=== PATIENT | male | born 1970 | race American Indian/Alaskan Native ===

== ENCOUNTER 2020-06-14 07:16 | Day surgery (SDC) | payer OTHER ==
[~2020-06-14 07:16] MED LIST: Lactated Ringers 1,000 ML IV SCH
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
[2020-06-14] MEDS ORDERED: Propofol 200 MG/20 ML SDV ONE ×3 (08:21→08:48)
--- NOTE | 2020-06-14 09:29 | PCM.OPNOTE ---
- General Post-Op/Procedure Note Date of Surgery/Procedure: 06/14/20 Operative Procedure(s): egd w bx. colonoscopy Findings: see [id number] Pre Op Diagnosis: Guaiac +ve stool Post-Op Diagnosis: Same Anesthesia Technique: Moderate Sedation Primary Surgeon: Jase Ch Pathology: egd bx Complications: None Condition: Good Free Text/Narrative:: Intake & Output 06/13/20 06/14/20 06/14/20 22:59 06:59 14:59 Intake Total 450 Balance 450
--- NOTE | 2020-06-14 10:58 | OR ---
SURGEON: Jase Ch MD DATE OF PROCEDURE: 06/14/2020 PREOPERATIVE DIAGNOSIS: Positive guaiac stool. POSTOPERATIVE DIAGNOSIS: Anal fissure. PROCEDURES PERFORMED: Esophagogastroduodenoscopy with biopsy and colonoscopy. DESCRIPTION OF PROCEDURE: EGD: The patient was taken to the endoscopy room, and with the DIRECTOR OF PROGRAMMING, Diprivan was administered. A well-lubricated EGD scope was gently inserted through the oropharynx, down the esophagus, passing through the gastroesophageal junction, into the stomach. The mucosa was examined upon the passage. Any etiology will be noted. Once in the stomach, we continued to advance to the distal antrum, passed through the pylorus into the second portion of the duodenum. Again, the mucosa was examined for any abnormality and etiology. The scope was then retrieved back to the stomach and then retroflexed to look at the fundus of the stomach. If a biopsy was indicated, we will biopsy the antrum, body, and gastroesophageal junction. The air will be sucked out while the scope is retrieved to reduce the patient's discomfort. The patient tolerated the procedure well. There were no intraoperative complications. Dr. Ch was present through the whole procedure. Prior to surgery, a time-out had been called, the patient identified, procedure identified and antibiotic administered. The patient was taken to the endoscopy room. A time out was called, patient identified, and procedure identified. Diprivan was then administrated. Patient went from awake to sleep, hearing doctor talking or door closing is normal. Perineum inspection and digital examination were then performed. A well- lubricated colonoscope was gently inserted through the rectum, advanced past the rectosigmoid junction, the descending colon, splenic flexure, transverse colon, hepatic flexure, ascending colon, arrived to the cecum. Cecum was identified as dictated in the finding. Then the scope was carefully withdrawn while attention was paid to the mucosal surface for any abnormality. Air will be sucked out during the scope withdrawal. At the rectum, retroflexed to examine any rectal diseases, fistula or hemorrhoids. Patient tolerated procedure well. There were no intraoperative complications, and Dr. Ch was present throughout the whole procedure. FINDINGS: EGD findings: 1. The patient is easily sedated with DIRECTOR OF PROGRAMMING and Diprivan, the patient is soundly snoring. 2. Oropharynx and proximal esophagus are free of disease, inflammation, stricture, or varicosity. Distal esophagus at GE junction at 40 shows very minimal salmon-colored change, suggests very mild acid reflux. Stomach rugae are normal in appearance. Antrum looks a little bit inflamed. Duodenum looks grossly normal. Retroflexed look at the fundus of stomach, there is no hiatal hernia. Biopsy done at antrum and body and GE junction at 40 and sucked out the gas while scope pulling out. During the whole study, there is no food particle or bile or blood observed. Colonoscopy findings: 1. The patient is easily sedated with DIRECTOR OF PROGRAMMING and Diprivan, the patient is soundly snoring. 2. Bowel prep is average to good. No semi-formed stool, no stool ball. 3. Colon is rather straightforward. Cecum indicated by ileocecal fold, one-to- one indentation, appendiceal orifice. Light emittance is not observed. Mucosa examined upon scope pulling out with a little bit with irrigation. The patient does not have diverticulosis, polyp, mass, growth, inflammation, stricture, ulceration, AV malformation, bleeding, none of those. Stool is yellow and brown. The patient has mild external hemorrhoid, almost none, and no internal hemorrhoid. At 6 o'clock, if the patient is prone, toward the penis direction, there is a thickened scar, suggests a healed fissure in the past and that may explain his positive guaiac stool. The patient also remarked that sometimes when he wipes he sees blood. Anyway, it is healed, but it is very thickened, hypertrophied consistent with a healed fissure. The patient would benefit from repeat colonoscopy in 10 years from today or if clinically indicated otherwise. TRAY / DIANE /[id number]
--- NOTE | 2020-06-14 11:14 | PCM48HPAN ---
Post Anesthesia Note - EVALUATION WITHIN 48HRS OF ANESTHETIC Vital Signs in Normal Range: Yes Patient Participated in Evaluation: Yes Respiratory Function Stable: Yes Airway Patent: Yes Cardiovascular Function Stable: Yes Hydration Status Stable: Yes Pain Control Satisfactory: Yes Nausea and Vomiting Control Satisfactory: Yes Mental Status Recovered: Yes Vital Signs: Last Vital Signs Temp 36.4 C 06/14/20 09:18 Pulse 68 06/14/20 09:18 Resp 14 06/14/20 09:18 BP 114/74 06/14/20 09:18 Pulse Ox 95 06/14/20 09:18 - COMMENTS/OBSERVATIONS Free Text/Narrative:: No anesthesia problems
--- NOTE | 2020-06-14 11:14 | PCM.POSTAN ---
POST ANESTHESIA ASSESSMENT - MENTAL STATUS Mental Status: Alert, Oriented - VITAL SIGNS Vital Signs: Last Vital Signs Temp 36.4 C 06/14/20 09:18 Pulse 68 06/14/20 09:18 Resp 14 06/14/20 09:18 BP 114/74 06/14/20 09:18 Pulse Ox 95 06/14/20 09:18 - RESPIRATORY Respiratory Status: Respiratory Rate WNL, Airway Patent, O2 Saturation Stable - CARDIOVASCULAR CV Status: Pulse Rate WNL, Blood Pressure Stable - GASTROINTESTINAL GI Status: No Symptoms - PAIN Pain Score: 0 - POST OP HYDRATION Hydration Status: Adequate & Stable - OBSERVATIONS Free Text/Narrative:: No anesthesia problems
== END 2020-06-14 09:36 | disposition home or self-care (01) ==
LOC: MW.SDS 07:16
PROVIDERS: ATTEND Surgery
DX: R19.4 Change in bowel habit (principal); K29.00 Acute gastritis without bleeding; K29.50 Unspecified chronic gastritis without bleeding; K21.00 Gastro-esophageal reflux disease with esophagitis, without bleeding; K64.4 Residual hemorrhoidal skin tags; I10 Essential (primary) hypertension; G47.30 Sleep apnea, unspecified; E66.9 Obesity, unspecified; Z79.899 Other long term (current) drug therapy; Z98.890 Other specified postprocedural states; Z68.35 Body mass index [BMI] 35.0-35.9, adult
CPT/HCPCS: 43239; 45378; 88305; 88312; J2704; J7120

== ENCOUNTER 2020-11-01 08:09 | Day surgery (SDC) | payer OTHER ==
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
[~2020-11-01 08:09] MED LIST changes: +Lidocaine 2% 5 ML SDV ONE; +Ondansetron 4 MG/2 ML SDV IVPUSH PRN; +Ondansetron 4 MG/2 ML SDV ONE; +Propofol 200 MG/20 ML SDV ONE; +fentaNYL 100 MCG/2 ML SDV ONE
[2020-11-01] MEDS ORDERED: Metoclopramide 10 MG/2 ML SDV ONE ×2 (08:36→08:37)
--- NOTE | 2020-11-01 09:32 | PCM.OPNOTE ---
- General Post-Op/Procedure Note Date of Surgery/Procedure: 11/01/20 Operative Procedure(s): egd w bx Findings: see [id number] Pre Op Diagnosis: hpylori infection hx Post-Op Diagnosis: Same Anesthesia Technique: Moderate Sedation Primary Surgeon: Jase Ch Pathology: egd bx and whitish curdish stuff, check for h pylori and yeast Complications: None Condition: Good
--- NOTE | 2020-11-01 09:41 | PCM.POSTAN ---
POST ANESTHESIA ASSESSMENT - MENTAL STATUS Mental Status: Alert, Oriented - VITAL SIGNS Vital Signs: Last Vital Signs Temp 96.6 F L 11/01/20 08:20 Pulse 80 11/01/20 09:38 Resp 15 11/01/20 09:38 BP 142/86 H 11/01/20 09:38 Pulse Ox 97 11/01/20 09:38 - RESPIRATORY Respiratory Status: Respiratory Rate WNL, Airway Patent, O2 Saturation Stable - CARDIOVASCULAR CV Status: Pulse Rate WNL, Blood Pressure Stable - GASTROINTESTINAL GI Status: No Symptoms - POST OP HYDRATION Hydration Status: Adequate & Stable
--- NOTE | 2020-11-01 09:42 | PCM48HPAN ---
Post Anesthesia Note - EVALUATION WITHIN 48HRS OF ANESTHETIC Vital Signs in Normal Range: Yes Patient Participated in Evaluation: Yes Respiratory Function Stable: Yes Airway Patent: Yes Cardiovascular Function Stable: Yes Hydration Status Stable: Yes Pain Control Satisfactory: Yes Nausea and Vomiting Control Satisfactory: Yes Mental Status Recovered: Yes Vital Signs: Last Vital Signs Temp 96.6 F L 11/01/20 08:20 Pulse 80 11/01/20 09:38 Resp 15 11/01/20 09:38 BP 142/86 H 11/01/20 09:38 Pulse Ox 97 11/01/20 09:38
--- NOTE | 2020-11-01 14:46 | OR ---
SURGEON: Jase Ch MD DATE OF PROCEDURE: 11/01/2020 PRIMARY SURGEON: Jase Ch MD PREOPERATIVE DIAGNOSIS: History of Helicobacter pylori infection. POSTOPERATIVE DIAGNOSIS: History of Helicobacter pylori infection. PROCEDURE PERFORMED: Esophagogastroduodenoscopy with biopsy. DESCRIPTION OF PROCEDURE: EGD: The patient was taken to the endoscopy room, and with the REFUSE COLLECTOR SUPERVISOR, Diprivan was administered. A well-lubricated EGD scope was gently inserted through the oropharynx, down the esophagus, passing through the gastroesophageal junction, into the stomach. The mucosa was examined upon the passage. Any etiology will be noted. Once in the stomach, we continued to advance to the distal antrum, passed through the pylorus into the second portion of the duodenum. Again, the mucosa was examined for any abnormality and etiology. The scope was then retrieved back to the stomach and then retroflexed to look at the fundus of the stomach. If a biopsy was indicated, we will biopsy the antrum, body, and gastroesophageal junction. The air will be sucked out while the scope is retrieved to reduce the patient's discomfort. The patient tolerated the procedure well. There were no intraoperative complications. Dr. Ch was present through the whole procedure. Prior to surgery, a time-out had been called, the patient identified, procedure identified and antibiotic administered. FINDINGS: 1. The patient is easily sedated with REFUSE COLLECTOR SUPERVISOR and Diprivan. The patient is soundly snoring. 2. Oropharynx and very proximal esophagus are free of disease, inflammation, stricture, or varicosity, but starting from the mid esophagus, there is quite a lot of white curdish stuff sticking onto the mucosa, sounds like it is a yeast infection, could be healed ulcer. We biopsied at 30 cm. There is no stricture, no clear inflammation. At distal esophagus at 40, there is some salmon-colored change, suggests acid reflux. No esophagitis. Stomach rugae are normal in appearance and antrum has some coffee-ground stuff. No briana inflammation, but there is some coffee-ground stuff. Duodenum was grossly normal. On retroflexed look at the fundus of stomach, there is no hiatal hernia. Biopsy done at antrum and body and GE junction at 40 and at the same time, biopsy of the 30 cm at the mid esophagus because of the whitish stuff, and sucked out the gas while scope pulling out. During the whole study, there is no blood observed and there was no bile or food particle observed. As always, thank you for the kind referral. TRAY CONTRERAS /[id number]
== END 2020-11-01 10:05 | disposition home or self-care (01) ==
LOC: MW.SDS 08:09
PROVIDERS: ATTEND Surgery
DX: K29.50 Unspecified chronic gastritis without bleeding (principal); K20.90 Esophagitis, unspecified without bleeding; I10 Essential (primary) hypertension; E66.9 Obesity, unspecified; Z68.36 Body mass index [BMI] 36.0-36.9, adult; Z79.899 Other long term (current) drug therapy; Z86.19 Personal history of other infectious and parasitic diseases; Z98.890 Other specified postprocedural states
CPT/HCPCS: 43239; 88305; 88312; 88342; J2704; J2765; J3010; J7120; 00731; J2405

== ENCOUNTER 2021-07-25 06:51 | Day surgery (SDC) | payer OTHER ==
[~2021-07-25 06:51] MED LIST changes: -Lidocaine 2% 5 ML SDV ONE; -Ondansetron 4 MG/2 ML SDV IVPUSH PRN; -Ondansetron 4 MG/2 ML SDV ONE; -Propofol 200 MG/20 ML SDV ONE; -fentaNYL 100 MCG/2 ML SDV ONE
[2021-07-25] MEDS ORDERED: Propofol 200 MG/20 ML SDV ONE ×2 (07:28→07:48)
[2021-07-25] MEDS ORDERED: fentaNYL 100 MCG/2 ML SDV ONE (07:28)
[2021-07-25] MEDS ORDERED: Lidocaine 2% 5 ML SDV ONE (07:50)
== END 2021-07-25 08:30 | disposition home or self-care (01) ==
LOC: MW.SDS 06:51
PROVIDERS: ATTEND Surgery
DX: K29.50 Unspecified chronic gastritis without bleeding (principal); B37.81 Candidal esophagitis; E66.9 Obesity, unspecified; G47.30 Sleep apnea, unspecified; K21.9 Gastro-esophageal reflux disease without esophagitis; I10 Essential (primary) hypertension; Z79.899 Other long term (current) drug therapy
CPT/HCPCS: 43239; J2704; J3010; J7120; 00731